=== PATIENT | female | born 2000 | race Caucasian/White ===

== ENCOUNTER 2024-05-25 09:41 | Outpatient (CLI) | payer OTHER | END 2024-05-25 09:42 | disposition home or self-care (01) | LOC: CSHULT 09:41 | PROVIDERS: ATTEND Internal Medicine Gastroenterology | DX: R10.9 Unspecified abdominal pain (principal); R12 Heartburn; E73.9 Lactose intolerance, unspecified; R63.4 Abnormal weight loss | CPT/HCPCS: 76700 ==